=== PATIENT | female | born 1985 | race Caucasian/White ===

== ENCOUNTER 2024-09-23 08:06 | Emergency (ER) | payer OTHER ==
[~2024-09-23] VITALS: Ht 157.5 cm; Wt 71.2 kg
[2024-09-23 08:55] LABS: HIV-1 p24 ANTIGEN NON REACTIVE (NONREACTIVE); HIV-1/2 ANTIBODY NON REACTIVE (NONREACTIVE)
[2024-09-23 09:53] VITALS: BP 132/94; O2SAT 99
[2024-09-24 06:06] LABS: HEPATITIS B CORE AB, TOTAL Negative (Negative); HEPATITIS B SURFACE AB, QUAL Reactive (.); HEPATITIS C VIRUS ANTIBODY Non Reactive (Non Reactive)
== END 2024-09-23 09:55 | disposition home or self-care (01) ==
LOC: ER 08:06
DX: S61.439A Puncture wound without foreign body of unspecified hand, initial encounter (principal); Z77.21 Contact with and (suspected) exposure to potentially hazardous body fluids; W46.0XXA Contact with hypodermic needle, initial encounter; Y93.89 Activity, other specified; Y92.89 Other specified places as the place of occurrence of the external cause; Y99.0 Civilian activity done for income or pay
CPT/HCPCS: 36415; 86704; 86706; 86803; 87806; A4606; A4663

== ENCOUNTER 2024-11-07 14:27 | Emergency (ER) | payer BC ==
[~2024-11-07] VITALS: Ht 165.1 cm; Wt 70.3 kg
[2024-11-07] MEDS: LORAZEPAM 0.5 MG TABLET PO ONE (14:46)
[2024-11-07] MEDS: FAMOTIDINE 20 MG TABLET PO ONE (14:46)
[2024-11-07 14:56] LABS: *BILIRUBIN,URIN NEGATIVE (NEGATIVE); *CLARITY,URINE CLEAR (CLEAR); *COLOR,URINE YELLOW (YELLOW); *KETONES,URINE NEGATIVE (NEGATIVE); *PROTEIN,URINE NEGATIVE (NEGATIVE); *UROBILINOGEN,URINE 0.2 E.U./dl (NORMAL); LEUKOCYTE ESTERASE ,URINE NEGATIVE (NEGATIVE); NITRITE, URINE NEGATIVE (NEGATIVE); UGLUCOSE NEGATIVE (NEGATIVE)
[2024-11-07 14:57] LABS: *BLOOD, URINE TRACE (NEGATIVE)
[2024-11-07 14:58] LABS: *URINE HCG, QUAL NEGATIVE (NEGATIVE)
[2024-11-07 14:58] LABS: BASOPHILS # (AUTO) 0.1 K/UL (0.0-0.2); BASOPHILS % (AUTO) 0.7 % (0.0-2.0); EOSINOPHILS % (AUTO) 0.6 % (0.0-7.0); HEMATOCRIT 36.6 % (31.2-41.9); HEMOGLOBIN 12.3 g/dL (10.9-14.3); LYMPHOCYTES # (AUTO) 1.3 K/uL (0.8-4.8); LYMPHOCYTES % (AUTO) 17.9 % (20.5-51.5); MEAN CORPUSCULAR HEMOGLOBIN 29.1 uug (24.7-32.8); MEAN CORPUSCULAR HGB CONC 34 g/dL (32.3-35.6); MEAN CORPUSCULAR VOLUME 86.9 fL (75.5-95.3); MONOCYTES # (AUTO) 0.5 K/uL (0.1-1.30); MONOCYTES % (AUTO) 6.1 % (0.0-11.0); NEUTROPHILS # (AUTO) 5.5 K/uL (1.8-8.9); NEUTROPHILS % (AUTO) 74.7 % (38.5-71.5); PLATELET COUNT (AUTO) 227 K/uL (179-408); RED BLOOD CELL COUNT(AUTO) 4.21 MIL/uL (3.63-4.92); RED CELL DISTRIBUTION WIDTH 14.7 % (12.3-17.7); WHITE BLOOD COUNT (AUTO) 7.4 K/uL (3.8-11.8)
[2024-11-07 15:06] LABS: BACTERIA,URINE FEW /HPF (NONE SEEN); RBC,URINE 0-3 /HPF (0-3); WBC,URINE 0-3 /HPF (0-3)
[2024-11-07 15:07] LABS: SQUAMOUS EPITHELIAL CELL,UR MODERATE /HPF (NONE SEEN)
[2024-11-07 15:08] LABS: CALCIUM 9.1 mg/dL (8.5-10.1); CREATININE 0.7 mg/dL (0.6-1.3); POTASSIUM 3.5 mmol/L (3.5-5.1)
[2024-11-07] MEDS ORDERED: FAMOTIDINE 20 MG TABLET ONE (15:08)
[2024-11-07] MEDS ORDERED: LORAZEPAM 0.5 MG TABLET ONE (15:08)
[2024-11-07 15:15] LABS: BILIRUBIN,TOTAL 0.3 mg/dL (0.2-1.0); TOTAL PROTEIN, SERUM 7.5 g/dL (6.4-8.2)
[2024-11-07] MEDS ORDERED: HYDR-3974 PO (17:18)
[2024-11-07 17:56] VITALS: BP 132/89; TEMP 97.8; O2SAT 100
== END 2024-11-07 17:35 | disposition home or self-care (01) ==
LOC: ER 14:27
DX: R10.9 Unspecified abdominal pain (principal); R07.9 Chest pain, unspecified
CPT/HCPCS: 36415; 71045; 76700; 83690; 84703; 85025; A4606; A4663

== ENCOUNTER 2024-11-16 20:00 | Emergency (ER) | payer BC ==
[~2024-11-16] VITALS: Ht 165.1 cm; Wt 69.4 kg
[~2024-11-16 20:00] MED LIST: HYDR-3974 PO
[2024-11-16 20:30] LABS: *BILIRUBIN,URIN NEGATIVE (NEGATIVE); *BLOOD, URINE NEGATIVE (NEGATIVE); *CLARITY,URINE CLEAR (CLEAR); *COLOR,URINE YELLOW (YELLOW); *KETONES,URINE NEGATIVE (NEGATIVE); *PROTEIN,URINE NEGATIVE (NEGATIVE); *UROBILINOGEN,URINE 0.2 E.U./dl (NORMAL); LEUKOCYTE ESTERASE ,URINE NEGATIVE (NEGATIVE); NITRITE, URINE NEGATIVE (NEGATIVE); PH,URINE 6.5 (5.0-8.0); UGLUCOSE NEGATIVE (NEGATIVE)
[2024-11-16 20:32] LABS: *URINE HCG, QUAL NEGATIVE (NEGATIVE)
[2024-11-16] MEDS ORDERED: ONDA4TAB5 PO (21:37)
[2024-11-16] MEDS ORDERED: PANT40TA2 PO (21:37)
[2024-11-16] MEDS ORDERED: DICY10CA13 PO (21:37)
[2024-11-16 21:42] VITALS: BP 115/84; TEMP 98.1; O2SAT 100
== END 2024-11-16 21:44 | disposition home or self-care (01) ==
LOC: ER 20:17
DX: R10.12 Left upper quadrant pain (principal); R10.13 Epigastric pain; Z79.899 Other long term (current) drug therapy
CPT/HCPCS: 84703; A4606; A4663

== ENCOUNTER 2025-08-10 12:54 | Emergency (ER) | payer BC ==
[~2025-08-10] VITALS: Ht 165.1 cm; Wt 69.4 kg
[2025-08-10 12:54] VITALS: BP 125/86
[~2025-08-10 12:54] MED LIST changes: +DICY-17 PO; +ONDA4TAB5 PO; +PANT40TA2 PO
[2025-08-10] MEDS ORDERED: HYDR-3980 PO (13:26)
[2025-08-10] MEDS ORDERED: ALBU18HF2 INH (13:27)
[2025-08-10 13:34] VITALS: BP 125/86; TEMP 98.1; O2SAT 96
== END 2025-08-10 13:35 | disposition home or self-care (01) ==
LOC: ER 12:54
DX: J20.8 Acute bronchitis due to other specified organisms (principal); B97.89 Other viral agents as the cause of diseases classified elsewhere; Z79.899 Other long term (current) drug therapy
CPT/HCPCS: A4606; A4663

== ENCOUNTER 2025-08-13 21:50 | Emergency (ER) | payer BC ==
[~2025-08-13] VITALS: Ht 165.1 cm; Wt 69.4 kg
[~2025-08-13 21:50] MED LIST changes: +ALBU18HF2 INH; +HYDR-3980 PO
[2025-08-13 21:55] VITALS: BP 134/89
[2025-08-13] MEDS ORDERED: GUAIFENESIN/DEXTROMETHORPHAN 5 ML UDC ONE (22:42)
[2025-08-13] MEDS: GUAIFENESIN/DEXTROMETHORPHAN 5 ML UDC PO ONE (22:43)
[2025-08-13 23:44] VITALS: BP 134/89; O2SAT 99
== END 2025-08-13 23:45 | disposition home or self-care (01) ==
LOC: ER 21:57
DX: J02.9 Acute pharyngitis, unspecified (principal); R05.9 Cough, unspecified; Z79.899 Other long term (current) drug therapy; Z20.822 Contact with and (suspected) exposure to COVID-19
CPT/HCPCS: 71045; A4606; A4663

== ENCOUNTER 2025-08-15 14:13 | Emergency (ER) | payer BC ==
[~2025-08-15] VITALS: Ht 165.1 cm; Wt 68.9 kg
[2025-08-15 14:19] VITALS: BP 144/100
[2025-08-15] MEDS ORDERED: PRED50TA PO (14:47)
[2025-08-15] MEDS ORDERED: BUDE10.3 INH (14:47)
[2025-08-15 14:53] VITALS: BP 144/100; O2SAT 98
== END 2025-08-15 14:54 | disposition home or self-care (01) ==
LOC: ER 14:25
DX: J98.01 Acute bronchospasm (principal); Z79.899 Other long term (current) drug therapy
CPT/HCPCS: 99283; J7512 ×2; A4606; A4663